=== PATIENT | female | born 1955 | race Caucasian/White ===

== ENCOUNTER 2019-07-24 12:02 | Outpatient (CLI) | payer MEDICAID, SELFPAY ==
--- NOTE | 2019-07-24 12:16 | XRR_ITS ---
PROCEDURE INFORMATION: Exam: XR Left Hip with Pelvis when Performed Exam date and time: 07/24/2019 12:29 PM Age: 63 years old Clinical indication: Patient HX: Lower back and left hip pain TECHNIQUE: Imaging protocol: XR Left hip with pelvis when performed. Views: 2 or 3 views. COMPARISON: CT abdomen pelvis wo con [id number] 06/04/2013 8:23 PM FINDINGS: Bones/joints: No fracture. No dislocation. No hip joint space narrowing. Soft tissues: Ill-defined calcification present now in the soft tissue adjacent to the left femoral greater trochanter which can be due to trochanteric bursitis or calcific tendinitis. XR/XR hip LT 2-3V wo/w pel* [id number] IMPRESSION: Trochanteric bursitis or calcific tendinitis. Correlate with the location of the patient's pain and tenderness.
--- NOTE | 2019-07-24 12:16 | XRR_ITS ---
PROCEDURE INFORMATION: Exam: XR Lumbosacral Spine, 2 or 3 Views Exam date and time: 07/24/2019 12:29 PM Age: 63 years old Clinical indication: Lower back and left hip pain for 3 months TECHNIQUE: Imaging protocol: XR of the lumbosacral spine, 2 or 3 views. COMPARISON: CR Lumbar Spine 2-3 views* [id number] 07/22/2017 7:43 AM FINDINGS: Vertebrae: The bones are diffusely osteopenic. There has been an interval compression fracture of the superior aspect of the L5 vertebral body. There is mild encroachment upon the central canal. There is multilevel facet arthropathy in the lower lumbar spine. Disc degeneration is most prominent at L5-S1. Grade 1 spondylolisthesis of L4 on L5. Prior vertebral augmentation at T8. Soft tissues: No acute soft tissue abnormality. XR/XR lumbar spine 2-3V* [id number] IMPRESSION: Interval L5 vertebral body compression fracture.
== END 2019-07-24 12:03 | disposition home or self-care (01) ==
LOC: RAD 12:05
PROVIDERS: PCP Internal Medicine; Visit Provider Internal Medicine
DX: M54.5 Low back pain (principal); M25.552 Pain in left hip; M48.56XA Collapsed vertebra, not elsewhere classified, lumbar region, initial encounter for fracture
CPT/HCPCS: 72100; 73502

== ENCOUNTER 2019-08-01 10:27 | Outpatient (CLI) | payer MEDICAID, SELFPAY ==
--- NOTE | 2019-08-01 10:36 | MM_ITS ---
WS: [id number] BILATERAL DIGITAL DIAGNOSTIC MAMMOGRAM MAMMOGRAPHY WITH CAD CLINICAL INFORMATION: BREAST LUMP LT. COMPARISON: 05/05/2016 and 10/15/2014. TECHNIQUE: Bilateral CC, MLO, and ML views. FINDINGS: The breasts are composed of heterogeneous fibroglandular density, which can limit the detection of sm all underlying mass lesions. Lucent centered calcifications. Vascular calcification. Palpable marker outer left breast. No mammographic abnormalities in this area. Ultrasound is pending. Increasing nodular dense breast tissue upper inner quadrant right breast with clustered calcification s. Recommend additional evaluation with spot compression views and ultrasound. ULTRASOUND BREAST LEFT TECHNIQUE: Ultrasound left breast focused area of concern. CLINICAL INFORMATION: BREAST LUMP LT. COMPARISON: May 05, 2016 FINDINGS: Ultrasound left breast at the 1:00 position 1 cm from the nipple in the area of reported spider bite. In the area of the reported spider bite, there is a suspicious lobulated hypoechoic lesion measuring 9.7 x 6.0 x 10 mm with irregular borders. This lesion is taller than wide and appears solid. This le tracy is indeterminant and recommend further evaluation with ultrasound-guided biopsy considering the appearance and configuration. No evidence of drainable abscess or fluid collection. Ultrasound 4:00 position was performed patient directed area of concern. No evidence of pathologic ma ss or lesion at the 4:00 position. Additional ultrasound was performed of the left axilla with several enlarged lymph nodes. In particul ar abnormal appearance of a left axillary lymph node with near complete replacement of the normal fat ty hilum in cortical thickening. This lymph node measures 1.7 x 1.4 x 1.7 cm and is suspicious. Addit ional elongated ovoid-shaped lymph node measuring 3.6 x 0.7 x 2.4 CM. MM/[place] [id number] IMPRESSION: 1. Hypoechoic lobulated lesion in the reported area of suspected spider bite. This lesion has a solid appearance with lobulated borders and is suspicious. Re commend further evaluation with ultrasound-guided biopsy for further evaluation . 2. Enlarged abnormal-appearing lymph node in the left axilla with loss of the normal fatty hilum. The lymph node measures 1.7 x 1.4 x 1.7 CM. This also could be evaluated with ultrasound-guided biopsy. LEFT BREAST BI-RADS: 4B-Suspicious: Intermediate FOLLOW UP: US Guided Biopsy Recommended RIGHT BREAST IS INCOMPLETE. ADDITIONAL SPOT COMPRESSION VIEWS AND ULTRASOUND RE COMMENDED OF THE NODULAR BREAST TISSUE RIGHT BREAST
== END 2019-08-01 10:28 | disposition home or self-care (01) ==
PROVIDERS: PCP Internal Medicine; Visit Provider Internal Medicine
DX: N63.21 Unspecified lump in the left breast, upper outer quadrant
CPT/HCPCS: 76642; 77066

== ENCOUNTER 2019-08-08 11:12 | Outpatient (CLI) | payer MEDICAID, SELFPAY ==
--- NOTE | 2019-08-08 11:17 | MR_ITS ---
WS: [id number] MRI LUMBAR SPINE NONCONTRAST HISTORY: DEGENERATIVE disc DISEASE WITH RADICULOPATHY COMPARISON: 11/15/2014 TECHNIQUE: Sagittal and axial multisequence imaging is submitted. Mild increase in thoracic kyphosis. Prior vertebroplasty at T8. Central disc protrusion at T10-11 wit hout contact on the cord. L4 anterolisthesis by 7.2 mm. Anterolisthesis of the L4 is in part due to to the retropulsion of the superior endplate of L5. Anterolisthesis has increased since 2014. Disc desiccation at all levels. Th ere is a new 20% burst fracture involving L5 since 2014. Fracture was described on 07/24/2019. Subacut e L5 fracture with involvement and marrow edema extending into the pedicles bilaterally at L5. There is a small amount of edema in the posterior elements of L4 also. Conus terminates normally at L1. L1-L2: Mild annular disc bulge and facet disease. No stenosis. L2-L3: Moderate annular disc bulging with flattening of the ventral thecal sac. Ligamentum flavum hyp ertrophy and facet arthritis causing mild narrowing of the thecal sac with mild central stenosis. L3-L4: Mild annular disc bulging with ligamentum flavum hypertrophy and facet arthritis. Small amount of fluid in the facet joints. Mild central and subarticular recess stenosis. L4-L5: Annular disc bulging and osteophytic ridging. Marked facet and ligamentum flavum arthritis. Gr eater ligamentum flavum hypertrophy on the LEFT. There is severe central stenosis and subarticular re cess stenosis with moderate bilateral foraminal stenosis. Increase fluid in the facet joints bilatera lly. L5-S1: Mild disc bulging. No significant stenosis. Visualized paraspinal soft tissues are negative. MR/MR lumbar spine wo con* [id number] IMPRESSION: 1. New burst fracture of L5 since 11/15/2014. Recently described on a radiograp h of 07/24/2019. Retropulsion of the posterior superior endplate with stenosis o f the central canal. 2. Severe central and subarticular recess stenosis at L4-5 with moderate bilat eral foraminal stenosis. Stenosis is in part due to the retropulsion of the pos terior superior endplate of L5 and disc disease and facet disease. 3. Mild central stenosis at L2-3 and L3-4.
== END 2019-08-08 11:13 | disposition home or self-care (01) ==
LOC: RADWPI 11:15
PROVIDERS: Family Provider Internal Medicine; PCP Internal Medicine; Visit Provider Internal Medicine
DX: M51.17 Intervertebral disc disorders with radiculopathy, lumbosacral region (principal); S32.051A Stable burst fracture of fifth lumbar vertebra, initial encounter for closed fracture; X58.XXXA Exposure to other specified factors, initial encounter; M48.061 Spinal stenosis, lumbar region without neurogenic claudication; M51.36 Other intervertebral disc degeneration, lumbar region
CPT/HCPCS: 72148

== ENCOUNTER 2019-08-16 09:41 | Outpatient (CLI) | payer MEDICAID, SELFPAY ==
--- NOTE | 2019-08-16 | US_ITS ---
WS: [id number] ULTRASOUND-GUIDED LEFT BREAST BIOPSY LEFT AXILLARY NODE BIOPSY HISTORY: BREAST MASS and possible abnormal lymph node LEFT axilla COMPARISON: 08/01/2019 Procedure, risks and complications are explained to the patient. Medications are reviewed. Consent is obtained. The mass in the LEFT breast is localized with ultrasound. This is a very vague mass near 1:00 as seen on the prior study. Skin is cleansed with ChloraPrep and anesthetized with 1% buffered lidocaine. Sm all dermatome is made. Under sterile conditions mass is biopsied with a 14-gauge Achieve needle. Mult iple core biopsies are performed. Material placed in formalin and sent to pathology for review. No co mplications encountered. LEFT axillary mass biopsy is performed also after sterile technique. Indeterminate for lymph node. Hy perechoic area as described on the prior ultrasound will be biopsied. Skin is cleansed with ChloraPre p and anesthetized with 1% buffered lidocaine. 18-gauge achieve needle is used for biopsy. Specimen p laced in formalin. Breast tissue marker (Bard ultrasound enhanced ribbon): Clips are placed within the LEFT breast mass and also in the axillary biopsy. Patient left the radiology suite with no complications. Patient is instructed to return to [facility] or [facility] with any concerns. 1. Uncomplicated core needle biopsy breast mass at 1:00. US/US biopsy lymph node [id number] IMPRESSION: PATHOLOGY: Atrophic breast parenchyma with small foci of apocrine metaplasia. N o atypia or malignancy. RECOMMENDATION: Diagnostic LEFT mammogram 6 months. 2. Uncomplicated core needle biopsy LEFT axillary mass, indeterminate for lymph node. PATHOLOGY: Benign lymph node with mild sinus histiocytosis. No malignancy. RECOMMENDATION: No additional follow-up.
--- NOTE | 2019-08-16 | US_ITS ---
WS: [id number] ULTRASOUND-GUIDED LEFT BREAST BIOPSY LEFT AXILLARY NODE BIOPSY HISTORY: BREAST MASS and possible abnormal lymph node LEFT axilla COMPARISON: 08/01/2019 Procedure, risks and complications are explained to the patient. Medications are reviewed. Consent is obtained. The mass in the LEFT breast is localized with ultrasound. This is a very vague mass near 1:00 as seen on the prior study. Skin is cleansed with ChloraPrep and anesthetized with 1% buffered lidocaine. Sm all dermatome is made. Under sterile conditions mass is biopsied with a 14-gauge Achieve needle. Mult iple core biopsies are performed. Material placed in formalin and sent to pathology for review. No co mplications encountered. LEFT axillary mass biopsy is performed also after sterile technique. Indeterminate for lymph node. Hy perechoic area as described on the prior ultrasound will be biopsied. Skin is cleansed with ChloraPre p and anesthetized with 1% buffered lidocaine. 18-gauge achieve needle is used for biopsy. Specimen p laced in formalin. Breast tissue marker (Bard ultrasound enhanced ribbon): Clips are placed within the LEFT breast mass and also in the axillary biopsy. Patient left the radiology suite with no complications. Patient is instructed to return to [facility] or [facility] with any concerns. 1. Uncomplicated core needle biopsy breast mass at 1:00. US/[place] [id number] IMPRESSION: PATHOLOGY: Atrophic breast parenchyma with small foci of apocrine metaplasia. N o atypia or malignancy. RECOMMENDATION: Diagnostic LEFT mammogram 6 months. 2. Uncomplicated core needle biopsy LEFT axillary mass, indeterminate for lymph node. PATHOLOGY: Benign lymph node with mild sinus histiocytosis. No malignancy. RECOMMENDATION: No additional follow-up.
--- NOTE | 2019-08-16 09:47 | US_ITS ---
WS: [id number] RIGHT DIGITAL MAMMOGRAPHY WITH CAD CLINICAL INFORMATION: ABNORMAL BREAST IMAGING COMPARISON: August 01, 2019, 3 2016, 10/15 2014. TECHNIQUE: 3 views of the right breast were obtained. FINDINGS: The right breast is composed of heterogeneous fibroglandular density tissue, which can limit the dete ction of small underlying mass lesions. Again seen is the increasing nodular dense breast tissue uppe r outer quadrant right breast with clustered calcifications. Heterogeneous clustered calcifications a ppear relatively stable since 2014. Nodular dense breast tissue persists on the spot compression view s. Ultrasound is pending. ULTRASOUND BREAST RIGHT TECHNIQUE: Ultrasound right breast focused area of concern. CLINICAL INFORMATION: ABNORMAL BREAST IMAGING FINDINGS: Ultrasound right breast at the 12:00 position 3 cm from the nipple. 2-3 hypoechoic dense lobulated il l-defined breast lesions adjacent at the 12:00 position. Largest lesion at the 12:00 position measuri ng approximately 1.7 x 1.0 x 2.3 cm has a solid appearance with ill-defined borders. This lesion is i ndeterminant and recommend further evaluation with ultrasound-guided biopsy. US/US breast RT limited* [id number] IMPRESSION: BI-RADS: 4B-Suspicious: Intermediate FOLLOW UP: US Guided Biopsy Recommended
== END 2019-08-16 09:42 | disposition home or self-care (01) ==
LOC: RADSHAW 09:45
PROVIDERS: PCP Internal Medicine; Visit Provider Internal Medicine
DX: R92.8 Other abnormal and inconclusive findings on diagnostic imaging of breast (principal); N63.21 Unspecified lump in the left breast, upper outer quadrant; N64.2 Atrophy of breast; D76.3 Other histiocytosis syndromes; N64.89 Other specified disorders of breast
CPT/HCPCS: 19083; 38505; 76642; 76942; 77065; 88305; J2001

== ENCOUNTER 2019-08-21 08:57 | Outpatient (CLI) | payer MEDICAID, SELFPAY ==
--- NOTE | 2019-08-21 09:03 | US_ITS ---
WS: [id number] ULTRASOUND-GUIDED RIGHT BREAST BIOPSY CLINICAL INFORMATION: BREAST LUMP FINDINGS: The procedure including risks, benefits, and complications were discussed with the patient who agreed to proceed. Using sterile technique patient was prepped and draped in the usual sterile fashion. Aft er 1% lidocaine utilizing real-time ultrasound guidance 6 14-gauge cores were obtained of the right b reast lesion at the 12 o'clock position. Subsequently a titanium clip was placed in the biopsy cavity . No immediate complications. Pathology demonstrates Final Diagnosis Right breast, ultrasound-guided core needle biopsy: - Dense collagen fibrosis with focal changes suggestive of hyalinized fibroadenoma - No calcifications, atypia, or malignancy seen (multiple levels examined) US/[place] [id number] IMPRESSION: 1. Uncomplicated ultrasound-guided right breast biopsy. 2. The pathology demonstrates dense collagen fibrosis. No malignancy or atypia . BI-RADS: 3-Probably Benign FOLLOW UP: 6 Month Follow-up RECOMMEND 6 MONTH FOLLOW-UP RIGHT BREAST DIAGNOSTIC MAMMOGRAPHY AND ULTRASOUND TO CONFIRM STABILITY.
== END 2019-08-21 08:58 | disposition home or self-care (01) ==
LOC: RAD 08:59
PROVIDERS: PCP Internal Medicine; Visit Provider Internal Medicine
DX: N63.10 Unspecified lump in the right breast, unspecified quadrant (principal)
CPT/HCPCS: 19083; 88305

== ENCOUNTER 2019-09-17 11:00 | Outpatient (CLI) | payer MEDICAID, SELFPAY ==
--- NOTE | 2019-09-17 11:06 | CT_ITS ---
WS: [id number] LDCT LUNG CANCER SCREENING TECHNIQUE: Noncontrast CT of the chest with coronal and sagittal reformatted images. CLINICAL INFORMATION: NICOTINE DEPENDENCE COMPARISON: None. DLP: 47.35 mGy.cm DIvol: 1.[address] scans at [facility] use at least one of these dose optimization techniques: automat ed exposure control; mA and/or kV adjustment per patient size (includes targeted exams where dose is matched to clinical indication); or iterative reconstruction. FINDINGS: Mild paraseptal emphysematous changes. No suspicious pulmonary parenchymal opacities. No acute pulmon deepthi infiltrates. Coronary calcification. No mediastinal or hilar lymphadenopathy. Cholecystectomy cli ps. No axillary lymphadenopathy. Anterior wedging mid thoracic spine with vertebroplasty changes at T 8. Chronic bilateral rib fractures with callus formation. CT/CT lung screening [id number] IMPRESSION: LUNG-RADS: 1-Negative FOLLOW UP: 12 Month: Continue annual screening with LDCT
== END 2019-09-17 11:01 | disposition home or self-care (01) ==
LOC: RAD 11:02
PROVIDERS: PCP Internal Medicine; Visit Provider Internal Medicine
DX: Z12.2 Encounter for screening for malignant neoplasm of respiratory organs (principal); F17.218 Nicotine dependence, cigarettes, with other nicotine-induced disorders
CPT/HCPCS: G0297

== ENCOUNTER 2020-08-19 10:05 | Outpatient (CLI) | payer MEDICAID, SELFPAY ==
--- NOTE | 2020-08-19 10:11 | MM_ITS ---
WS: [id number] DIAGNOSTIC BILATERAL DIGITAL MAMMOGRAM WITH CAD HISTORY: RIGHT BREAST LUMP COMPARISON: 08/16/2019, 08/01/2019, 05/05/2016 TECHNIQUE: Bilateral craniocaudad, mediolateral oblique, and mediolateral views are submitted. Comput er aided detection utilized. Breast composition: The breasts are extremely dense, which lowers the sensitivity of mammography. Sammy y dense asymmetric breast tissue. Partially obscured nodules and asymmetries and calcifications. Thes e changes are stable over several prior years. The dense partially obscured nodule with calcification s at 12:00 in the RIGHT breast is stable. Benign biopsy was recently reported. MM/[place] [id number] IMPRESSION: BI-RADS: 2-Benign FOLLOW UP: 1 Year Follow-up
== END 2020-08-19 10:06 | disposition home or self-care (01) ==
LOC: RADSHAW 10:07
PROVIDERS: PCP Internal Medicine; Visit Provider Internal Medicine
DX: N63.15 Unspecified lump in the right breast, overlapping quadrants (principal); R92.1 Mammographic calcification found on diagnostic imaging of breast
CPT/HCPCS: 77066